=== PATIENT | male | born 1990 ===

== ENCOUNTER 2022-07-24 10:16 | Emergency (ER) | payer OTHER ==
[~2022-07-24] VITALS: Ht 177.8 cm; Wt 81.8 kg
[2022-07-24 16:10] VITALS: BP 115/68
== END 2022-07-24 16:11 | disposition home or self-care (01) ==
LOC: EMS 10:20
DX: Z02.2 Encounter for examination for admission to residential institution (principal); E11.9 Type 2 diabetes mellitus without complications; I10 Essential (primary) hypertension
CPT/HCPCS: 74176; 82948; 99284; Z7502